=== PATIENT | male | born 1980 | race African-American/Black ===

== ENCOUNTER 2025-02-15 22:36 | Emergency (ER) | payer OTHER, SELFPAY ==
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
[2025-02-15 22:39] VITALS: BP 133/94; PULSE 80; RESP 16; TEMP 36.1; O2SAT 99; BMI 28.5
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
[2025-02-15 23:38] VITALS: BP 139/92; PULSE 76; RESP 16; TEMP 36.7; O2SAT 97
[2025-02-16 00:13] LABS: Troponin-I High Sensitivity 4.8 ng/L (<3.5-35.0)
[2025-02-16 01:00] VITALS: BP 139/92; PULSE 76; RESP 16; TEMP 36.7; O2SAT 97
== END 2025-02-16 01:00 | disposition home or self-care (01) ==
PROVIDERS: Emergency Provider Emergency Medicine
DX: S20.212A Contusion of left front wall of thorax, initial encounter (principal); R07.89 Other chest pain; M25.511 Pain in right shoulder; M54.2 Cervicalgia; X58.XXXA Exposure to other specified factors, initial encounter; V43.52XA Car driver injured in collision with other type car in traffic accident, initial encounter; Y93.9 Activity, unspecified; Y92.410 Unspecified street and highway as the place of occurrence of the external cause; Y99.8 Other external cause status
CPT/HCPCS: 36415; 71046; 72020; 72125; 84484; 93005; 99284

== ENCOUNTER → 2025-02-15 23:12 | Outpatient (BNV) | payer OTHER, SELFPAY | PROVIDERS: Emergency Provider Emergency Medicine; Visit Provider Radiology Diagnostic Radiology | DX: S20.219A Contusion of unspecified front wall of thorax, initial encounter (principal); R07.9 Chest pain, unspecified; M25.512 Pain in left shoulder; M54.50 Low back pain, unspecified; V89.2XXA Person injured in unspecified motor-vehicle accident, traffic, initial encounter | CPT/HCPCS: 71046; 72020; 72125 ==

== ENCOUNTER → 2025-02-15 23:26 | Outpatient (BNV) | payer BC, SELFPAY | PROVIDERS: Emergency Provider Emergency Medicine; Visit Provider Internal Medicine Cardiovascular Disease | DX: I44.4 Left anterior fascicular block (principal) | CPT/HCPCS: 93010 ==

== ENCOUNTER 2025-06-22 11:44 | Emergency (ER) | payer BC, SELFPAY ==
--- NOTE | ~2025-06-22 | CT_ITS ---
CLINICAL HISTORY: Left sided sternal mass, tender to palpation --- Additional Notes or Special Instructions: Rule out bony malignancy CT chest without contrast Comparison: CR - XR CHEST 2V - 06/22/25 13:44 EDT Findings: No focal areas of consolidation within the lungs. No pleural effusion or pneumothorax. Thoracic aorta is nonaneurysmal. No enlarged lymph nodes. Borderline left ventricular dilation. No sternal fractures or bony destructive lesions of the sternum are identified. No soft tissue lesions adjacent of the sternum are seen. Minor bilateral gynecomastia, [id number]-mvat-left. Small hiatal hernia. Simple cysts within the left lobe of the liver measures 12 mm in size. No free fluid or free air within the upper abdomen. No acute bony lesion. IMPRESSION: 1. Unremarkable chest CT. This document has been electronically signed by: Erich Pereyra MD on 06/22/2025 16:43:33
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
[2025-06-22 12:35] VITALS: BP 146/88; PULSE 70; RESP 18; TEMP 36.6; O2SAT 98; BMI 28.9
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
[2025-06-22 13:01] LABS: MANUAL DIFF FLAG NO
[2025-06-22 13:04] LABS: Hematocrit 42.5 % (42.0-52.0); Hemoglobin 14.8 g/dl (14.0-18.0); Imm Gran Abs Auto 0.01 X10*3/uL (0.00-0.03); Imm Gran Pct Auto 0.3 % (0.0-0.4); Lymphocytes Absolute Auto 1.0 X10*3/uL (1.2-4.9); Mean Corpuscular HGB Conc 34.8 g/dl (31.0-36.0); Mean Corpuscular Hemoglobin 29.1 pg (27.0-33.0); Mean Corpuscular Volume 83.5 fL (80.0-98.0); NRBC Abs Auto 0.000 X10*3/uL (0.0-0.012); NRBC Pct Auto 0.0 /100WBC (0.0-0.2); Platelet Count 284 X10*3/uL (160-400); Red Blood Count 5.09 X10*6/uL (4.60-5.80); White Blood Count 3.5 X10*3/uL (4.8-10.8)
[2025-06-22 13:28] LABS: Albumin Level 4.7 g/dL (3.5-5.0); Alkaline Phosphatase 107 U/L (39-117); Anion Gap 8 (12-20); Aspartate Amino Transferase 31 U/L (5-37); Blood Urea Nitrogen 16 mg/dL (9-16); Calcium 9.3 mg/dL (8.4-10.2); Carbon Dioxide 29 mmol/L (22-29); Chloride 110 mmol/L (96-108); Creatinine Clr Calc Pharmacy 75.7; Estimated Glomerular Filt Rate > 60; Potassium 4.1 mmol/L (3.3-5.1); Sodium 143 mmol/L (135-145); Total Protein 7.2 g/dL (6.5-8.0)
[2025-06-22 13:33] LABS: Troponin-I High Sensitivity 5.1 ng/L (<3.5-35.0)
[2025-06-22 13:40] LABS: Alanine Aminotransferase 30 U/L (0-40)
[2025-06-22 15:24] VITALS: BP 132/99; PULSE 65; RESP 18; TEMP 36.6; O2SAT 98
== END 2025-06-22 17:06 | disposition home or self-care (01) ==
PROVIDERS: Nurse Practitioner Family; Emergency Provider Emergency Medicine Emergency Medical Services
DX: R07.89 Other chest pain (principal)
CPT/HCPCS: 36415; 71046; 71250; 80048; 80076; 84484; 85025; 93005; 99284

== ENCOUNTER → 2025-06-22 12:39 | Outpatient (BNV) | payer BC, SELFPAY | PROVIDERS: Emergency Provider Emergency Medicine Emergency Medical Services; Visit Provider Internal Medicine Cardiovascular Disease | DX: R94.31 Abnormal electrocardiogram [ECG] [EKG] (principal); R07.89 Other chest pain | CPT/HCPCS: 93010 ==

== ENCOUNTER → 2025-06-22 12:39 | Outpatient (BNV) | payer BC, SELFPAY | PROVIDERS: Emergency Provider Emergency Medicine Emergency Medical Services; Visit Provider Radiology Diagnostic Radiology | DX: R91.8 Other nonspecific abnormal finding of lung field (principal); R07.89 Other chest pain | CPT/HCPCS: 71046; 71250 ==